=== PATIENT | male | born 1990 | race Caucasian/White ===

== ENCOUNTER 2018-10-02 15:53 | Emergency (ER) | payer OTHER ==
[~2018-10-02] VITALS: Ht 180.3 cm; Wt 79.4 kg
[2018-10-02] MEDS ORDERED: ZOVIRAX400 MG PO (16:25)
== END 2018-10-02 16:20 | disposition home or self-care (01) ==
LOC: ED 15:53
DX: A60.01 Herpesviral infection of penis (principal); R59.0 Localized enlarged lymph nodes; Z11.3 Encounter for screening for infections with a predominantly sexual mode of transmission; F17.200 Nicotine dependence, unspecified, uncomplicated